=== PATIENT | female | born 1995 | race Hispanic/Latino ===

== ENCOUNTER 2020-11-07 17:05 | Emergency (ER) | payer OTHER ==
[~2020-11-07] VITALS: Ht 154.9 cm; Wt 54.5 kg
[2020-11-07 18:40] LABS: BASO % 0.3 % (0.0-1.0); EOS # 0.1 10^3/uL (0.0-0.5); EOS % 1.5 % (0.0-3.0); HEMATOCRIT 40.2 % (36.0-47.0); HEMOGLOBIN 13.6 g/dl (12.0-15.5); LYMPH # 2.9 10^3/uL (1.5-5.0); LYMPH % 30.6 % (24.0-44.0); MEAN CORPUSCULAR HEMOGLOBIN 30.4 pg (27.0-33.0); MEAN CORPUSCULAR HGB CONC 33.8 g/dl (32.0-36.5); MEAN CORPUSCULAR VOLUME 89.7 fl (80.0-96.0); MONO # 0.8 10^3/uL (0.0-0.8); MONO % 8.8 % (2.0-8.0); NEUTROPHILS # 5.6 10^3/uL (1.5-8.5); NEUTROPHILS % 58.5 % (36.0-66.0); PLATELET COUNT, AUTOMATED 274 10^3/uL (150-450); RED BLOOD COUNT 4.48 10^6/uL (4.00-5.40); WHITE BLOOD COUNT 9.6 10^3/uL (4.0-10.0)
[2020-11-07] MEDS ORDERED: NS 1,000 ML IV ONE (18:45)
[2020-11-07] MEDS ORDERED: ACETAMINOPHEN 325 MG TAB PO ONE (18:45)
[2020-11-07 19:09] LABS: ALBUMIN 3.8 GM/DL (3.2-5.2); ALT/SGPT 17 U/L (12-78); BILIRUBIN,TOTAL 0.5 MG/DL (0.2-1.0); BLOOD UREA NITROGEN 11 MG/DL (7-18); CALCIUM LEVEL 8.4 MG/DL (8.5-10.1); CARBON DIOXIDE LEVEL 27 MEQ/L (21-32); CHLORIDE LEVEL 109 MEQ/L (98-107); CREATININE FOR GFR 0.62 MG/DL (0.55-1.30); GLOMERULAR FILTRATION RATE > 60.0 (>60); GLUCOSE, FASTING 92 MG/DL (70-100); POTASSIUM SERUM 3.7 MEQ/L (3.5-5.1); SODIUM LEVEL 139 MEQ/L (136-145); TOTAL PROTEIN 6.9 GM/DL (6.4-8.2)
[2020-11-07 19:18] LABS: HCG, SERUM QUALITATIVE NEGATIVE (NEGATIVE)
[2020-11-07 20:42] VITALS: BP 111/68
--- NOTE | 2020-11-08 14:27 | ECGEPIP ---
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
== END 2020-11-07 20:58 | disposition home or self-care (01) ==
LOC: M ED 17:05
DX: R55 Syncope and collapse (principal)

== ENCOUNTER 2022-05-03 01:50 | Outpatient (CLI) | payer OTHER ==
[2022-05-03] MEDS ORDERED: ACET-907 PO (16:33)
[2022-05-03] MEDS ORDERED: PRENTAB9 PO (16:33)
[2022-05-03] MEDS ORDERED: ASPI81CH33 PO (16:34)
== END 2022-05-03 04:47 | disposition home or self-care (01) ==
LOC: M LDO 01:50
PROVIDERS: ATTEND Obstetrics & Gynecology
DX: O47.1 False labor at or after 37 completed weeks of gestation (principal); O48.0 Post-term pregnancy; Z3A.40 40 weeks gestation of pregnancy
CPT/HCPCS: 59025; G0463

== ENCOUNTER 2022-05-03 16:10 | Inpatient (IN) | payer OTHER ==
[2022-05-03] VITALS (18 sets, daily range): BP systolic 101–152; BP diastolic 55–87
[~2022-05-03] VITALS: Ht 154.9 cm; Wt 76.9 kg
[2022-05-03] MEDS ORDERED: ACET-907 PO (16:33)
[2022-05-03] MEDS ORDERED: PRENTAB9 PO (16:33)
[2022-05-03] MEDS ORDERED: ASPI81CH33 PO (16:34)
[2022-05-03] MEDS ORDERED: HOME MED LIST COMPLETE! XX SCH (16:35)
[2022-05-03] MEDS ORDERED: CARBOPROST TROMETHAMINE 250 MCG/ML AMP IM PRN (18:55)
[2022-05-03] MEDS ORDERED: OXYTOCIN DRIP 30 UNITS in IV 1 EA IV SCH ×2 (18:55→21:35)
[2022-05-03] MEDS ORDERED: TRANEXAMIC ACID INJection 1,000 MG in NS 100 ML IV PRN (18:55)
[2022-05-03] MEDS ORDERED: LIDOCAINE 1% MDV 20ML VIAL INFIL PRN (18:55)
[2022-05-03] MEDS ORDERED: METHYLERGONOVINE MALEATE 0.2 MG/ML VIAL (J2210) IM PRN (18:55)
[2022-05-03] MEDS ORDERED: LR 1,000 ML IV ONE (19:20)
[2022-05-03 19:22] LABS: BASO % 0.1 % (0.0-1.0); EOS % 0.1 % (0.0-3.0); HEMATOCRIT 33.7 % (36.0-47.0); HEMOGLOBIN 10.8 g/dl (12.0-15.5); LYMPH # 1.6 10^3/uL (1.5-5.0); LYMPH % 10.5 % (24.0-44.0); MEAN CORPUSCULAR VOLUME 81.2 fl (80.0-96.0); MONO # 0.7 10^3/uL (0.0-0.8); NEUTROPHILS # 12.4 10^3/uL (1.5-8.5); NEUTROPHILS % 83.8 % (36.0-66.0); PLATELET COUNT, AUTOMATED 234 10^3/uL (150-450); RED BLOOD COUNT 4.15 10^6/uL (4.00-5.40); WHITE BLOOD COUNT 14.8 10^3/uL (4.0-10.0)
[2022-05-03] MEDS ORDERED: ONDANSETRON 4MG 2ML VIAL IV PRN (19:45)
[2022-05-03] MEDS ORDERED: diphenhydrAMINE 50MG/ML VIAL IV PRN (19:45)
[2022-05-03] MEDS ORDERED: NALOXONE INJ 0.4MG/1ML VIAL IV PRN (19:45)
[2022-05-03] MEDS ORDERED: LR 500 ML IV PRN (19:45)
[2022-05-03] MEDS ORDERED: EPIDURAL/PCA KEYS XX PRN (19:45)
[2022-05-03] MEDS ORDERED: ePHEDrine SULFATE 25 MG/5 ML(5MG/ML) SYRINGE IVP PRN (19:45)
[2022-05-03] MEDS: FENTANYL/ROPIVACAINE/NACL BAG 100 ML EPIDURAL SCH (21:18)
[2022-05-03] MEDS: LR 1,000 ML IV SCH (21:19)
[2022-05-04] VITALS (43 sets, daily range): BP systolic 100–144; BP diastolic 53–89
[2022-05-04] MEDS: AMPICILLIN SOD 2 GM in D5W MINI-BAG PLUS 100 ML IV SCH ×2 (03:43→09:40)
[2022-05-04] MEDS: LR 1,000 ML IV SCH ×3 (03:48→13:04)
[2022-05-04] MEDS ORDERED: ACETAMINOPHEN 1000MG 100ML IV BAG IV ONE (03:55)
[2022-05-04] MEDS ORDERED: GENTAMICIN 380 MG in D5W 100 ML IV ONE (04:00)
[2022-05-04] MEDS: diphenhydrAMINE 50MG/ML VIAL IV STA ×2 (04:02→04:03)
[2022-05-04] MEDS ORDERED: ACETAMINOPHEN 500 MG TAB PO ONE ×2 (05:00→10:20)
[2022-05-04] MEDS ORDERED: diphenhydrAMINE 50MG/ML VIAL IV ONE (05:00)
[2022-05-04] MEDS: FENTANYL/ROPIVACAINE/NACL BAG 100 ML EPIDURAL SCH (05:15)
[2022-05-04] MEDS: IBUPROFEN 800 MG TAB PO SCH ×2 (14:00→22:20)
[2022-05-04] MEDS ORDERED: DOCUSATE SODIUM 100MG CAPSULE PO PRN (15:10)
[2022-05-04] MEDS ORDERED: DIBUCAINE 1% OINTMENT 30GM TOP PRN (15:10)
[2022-05-04] MEDS ORDERED: METOCLOPRAMIDE INJ 10MG/2ML VIAL IV PRN (15:10)
[2022-05-04] MEDS ORDERED: METHYLERGONOVINE MALEATE 0.2 MG/ML VIAL (J2210) IM PRN (15:10)
[2022-05-04] MEDS ORDERED: OXYTOCIN DRIP 30 UNITS in IV 1 EA IV SCH (15:10)
[2022-05-04] MEDS ORDERED: LR 1,000 ML IV SCH (15:10)
[2022-05-04] MEDS ORDERED: ONDANSETRON 4MG 2ML VIAL IV PRN (15:10)
[2022-05-04] MEDS ORDERED: RHOGAM 300 MCG (1500 IU) INJ (J2790) IM SCH (15:10)
[2022-05-04] MEDS: PRENATAL VITAMINS CHEWABLE TABLET PO SCH (17:35)
[2022-05-04] MEDS: ACETAMINOPHEN 500 MG TAB PO SCH (17:36)
[2022-05-05] MEDS: ACETAMINOPHEN 500 MG TAB PO SCH ×5 (01:41→23:09)
[2022-05-05 06:00] VITALS: BP 120/71
[2022-05-05 07:58] LABS: HEMATOCRIT 28.3 % (36.0-47.0); HEMOGLOBIN 9.1 g/dl (12.0-15.5); MEAN CORPUSCULAR HEMOGLOBIN 26.4 pg (27.0-33.0); MEAN CORPUSCULAR HGB CONC 32.2 g/dl (32.0-36.5); PLATELET COUNT, AUTOMATED 177 10^3/uL (150-450); RED BLOOD COUNT 3.45 10^6/uL (4.00-5.40); WHITE BLOOD COUNT 24.2 10^3/uL (4.0-10.0)
[2022-05-05] MEDS: IBUPROFEN 800 MG TAB PO SCH ×3 (08:46→22:40)
[2022-05-05] MEDS: PRENATAL VITAMINS CHEWABLE TABLET PO SCH (08:47)
[2022-05-05] MEDS ORDERED: PRENATAL VITAMINS CHEWABLE TABLET PO SCH (09:00)
[2022-05-05 18:00] VITALS: BP 122/67
[2022-05-06] MEDS: IBUPROFEN 800 MG TAB PO SCH ×2 (05:01→13:21)
[2022-05-06] MEDS: ACETAMINOPHEN 500 MG TAB PO SCH ×2 (05:01→13:20)
[2022-05-06 05:35] VITALS: BP 137/78
[2022-05-06] MEDS: PRENATAL VITAMINS CHEWABLE TABLET PO SCH (08:22)
[2022-05-06] MEDS ORDERED: MEASLES,MUMPS,RUBELLA VACCINE INJ (MMR-II) (90707) SC.IMMUN ONE (09:00)
[2022-05-06 09:49] LABS: HEMATOCRIT 28.9 % (36.0-47.0); HEMOGLOBIN 9.1 g/dl (12.0-15.5); MEAN CORPUSCULAR HEMOGLOBIN 26.1 pg (27.0-33.0); MEAN CORPUSCULAR HGB CONC 31.5 g/dl (32.0-36.5); PLATELET COUNT, AUTOMATED 205 10^3/uL (150-450); RED BLOOD COUNT 3.48 10^6/uL (4.00-5.40); WHITE BLOOD COUNT 16.7 10^3/uL (4.0-10.0)
[2022-05-06] MEDS ORDERED: ACET-683 PO (11:52)
[2022-05-06] MEDS ORDERED: IBUP80TA PO (11:52)
[2022-05-06] MEDS ORDERED: COLA100C5 PO (11:52)
== END 2022-05-06 16:00 | disposition home or self-care (01) | DRG 805 ==
LOC: M LDO 16:10 → M LDI 18:50 → M OBS 05-04 18:28
PROVIDERS: ADMIT Obstetrics & Gynecology; ATTEND Obstetrics & Gynecology
PROC: 10D17Z9 Manual Extraction of Products of Conception, Retained, Via Natural or Artificial Opening (ICD-10-PCS; principal; 2022-05-04)
PROC: 10E0XZZ Delivery of Products of Conception, External Approach (ICD-10-PCS; 2022-05-04)
DX: O48.0 Post-term pregnancy (principal); Z37.0 Single live birth; O41.1230 Chorioamnionitis, third trimester, not applicable or unspecified; Z3A.40 40 weeks gestation of pregnancy; O77.0 Labor and delivery complicated by meconium in amniotic fluid; O73.1 Retained portions of placenta and membranes, without hemorrhage; Z86.16 Personal history of COVID-19